=== PATIENT | male | born 1945 | race Caucasian/White ===

== ENCOUNTER 2021-11-13 10:06 | Emergency (ER) | payer MEDICARE ==
[~2021-11-13] VITALS: Ht 170.2 cm; Wt 85.0 kg
[~2021-11-13 10:06] MED LIST: ARNUITY EL50 MCG/ACT; BAYER ASPIRIN E81 MG PO; EXCEDRIN TENSION HEA PO; GABAPENTIN100 MG PO; HYDROCHLOROTHIA50 MG PO; LIPITOR40 M1 PO; LORATADINE10 M1 PO; MAGNESIUM500 M3; NORVASC5 M1 PO; OMEPRAZOLE DR20 MG; SERTRALINE25 MG PO; UROCIT-K 101080 MG; VITAMIN C1000 MG PO; VITAMIN D35000 UNIT PO; VITAMIN E400 UNIT PO
[2021-11-13] MEDS ORDERED: FLEXERIL5 M1 PO (10:43)
[2021-11-13] MEDS ORDERED: DECADRON4 MG PO (10:43)
[2021-11-13 11:45] VITALS: BP 181/82
== END 2021-11-13 11:45 | disposition home or self-care (01) ==
LOC: ED 10:06
DX: M54.50 Low back pain, unspecified (principal); I10 Essential (primary) hypertension; Z85.038 Personal history of other malignant neoplasm of large intestine; Z88.8 Allergy status to other drugs, medicaments and biological substances